=== PATIENT | male | born 1960 | race Caucasian/White ===

== ENCOUNTER 2021-08-11 15:51 | Emergency (ER) | payer BC, SELFPAY ==
[2021-08-11] VITALS (10 sets, daily range): BP systolic 116–145; BP diastolic 58–91; PULSE 114–144; RESP 16–27; TEMP 36.3; O2SAT 96–99
--- NOTE | 2021-08-11 18:22 | ED.ALCOHOL ---
HPI - Alcohol General Chief Complaint: Alcohol <Karina Argueta MATERIALS HANDLING COORDINATOR - Last Filed: 08/12/21 17:34> Stated Complaint: psych <Karina Argueta APRN - Last Filed: 08/12/21 17:34> Time Seen by Provider: 08/11/21 18:05 <Karina Argueta MATERIALS HANDLING COORDINATOR - Last Filed: 08/12/21 17:34> Source: patient <Karina Argueta APRN - Last Filed: 08/12/21 17:34> Mode of arrival: ambulatory <Karina Argueta MATERIALS HANDLING COORDINATOR - Last Filed: 08/12/21 17:34> Limitations: no limitations <Karina Argueta MATERIALS HANDLING COORDINATOR - Last Filed: 08/12/21 17:34> History of Present Illness HPI narrative: 61-year-old male escorted by letter as well please was brought in today with concerns for suicidal ideation and being drunk. Patient states he has recently lost his job and is currently going through a divorce and it has hit him hard. Patient states he has been alcoholic for a long time. Patient drinking over a liter a day. Patient does admit to suicidal thoughts but denies plan at current time. Per [employer] police patient had stated he was going to drink himself to . Patient denies homicidal ideation. Patient does admit to depression but denies hallucinations. Patient states his last drink was about 3:30 PM today. <Karina Argueta MATERIALS HANDLING COORDINATOR - Last Filed: 08/12/21 17:34> Related Data Allergies/Adverse Reactions: Allergies Allergy/AdvReac Type Severity Reaction Status Date / Time No Known Allergies Allergy Unknown Verified 08/11/21 18:34 <Karina Argueta MATERIALS HANDLING COORDINATOR - Last Filed: 08/12/21 17:34> Review of Systems Review of Systems: CONSTITUTIONAL: Denies fever, chills, or sweats. EYES: Denies visual changes, redness, or discharge. ENT: Denies rhinorrhea, congestion, sore throat, or otalgia. CARDIOVASCULAR: Denies chest pain, palpitations, or edema. RESPIRATORY: Denies cough or dyspnea. GASTROINTESTINAL: Denies abdominal pain, nausea, vomiting, or diarrhea. GENITOURINARY: Denies dysuria or hematuria. SKIN: Denies rash or itching. MUSCULOSKELETAL: Denies back pain, joint pain, or myalgia. NEUROLOGIC: Denies headache, numbness, dizziness, or weakness. PSYCHIATRIC: Depression and suicidal ideation. <Karina Argueta APRN - Last Filed: 08/12/21 17:34> PMFSH Social History Social History: Social History Substance use type: other <Karina Argueta APRN - Last Filed: 08/12/21 17:34> Exam Narrative: GENERAL: Well-appearing, well-nourished, and in no acute distress. HEAD: Normocephalic, atraumatic. EYES: PERRLA and EOMI. ENT: Nares clear, no rhinorrhea or epistaxis. Mucous membranes moist. Oropharynx without tonsillar hypertrophy exudate or other lesions. Bilateral TMs pearly leonard nonbulging NECK: Supple. No adenopathy or masses. No carotid bruits or JVD CHEST: Clear to auscultation. No respiratory distress. No wheezes rales or rhonchi HEART: Regular rate and rhythm. No murmur heard. Normal peripheral pulses. ABDOMEN: Soft, nontender, nondistended, normal active bowel sounds. EXTREMITIES: Normal range of motion. No edema. SKIN: Warm, dry, no rash. NEURO: No focal deficits. Alert and oriented x3. PSYCH: tearfull, depressed affect. <Karina Argueta APRN - Last Filed: 08/12/21 17:34> Course Course Emergency Course: 61-year-old male HPI as noted. Blood alcohol level 253. Plan is to reevaluate patient when sober. Will monitor for symptoms of withdrawal. <Karina Argueta APRN - Last Filed: 08/12/21 17:34> Reevaluation(s) Reevaluation #1: Received signout on the patient pending metabolization evaluation by crisis. Patient's repeat alcohol was 12 crisis consulted. <Curt Cortes MD - Last Filed: 08/12/21 07:23> Patient feeling much better, denying any suicidal or homicidal ideation, feeling concerned about the possibility of alcohol withdrawal, last alcohol intake was yesterday morning. A prescription of Ativan 1 mg 3 times daily for 3 days was given to the patient pr
--- NOTE | 2021-08-11 18:24 | PC.NURSE ---
Per ERP Pt needs a sitter until etoh blood wnl.
--- NOTE | 2021-08-11 18:37 | PC.NURSE ---
Pt belongings placed in cabinet bottom shelf between room 3and4
[2021-08-11 18:45] LABS: Basophils Absolute Auto 0.1 K/mm3 (0.0-0.1); Eosinophils Absolute Auto 0.6 K/mm3 (0-0.3); Eosinophils Percent Auto 4.8 % (0-4.4); Hematocrit 49.1 % (42.0-52.0); Hemoglobin 16.9 g/dL (14.0-18.0); Immature Granulocyte Absolute 0.14 K/mm3 (0.00-0.031); Immature Granulocyte Percent A 1.2 % (0-0.5); Lymphocytes Absolute Auto 1.92 K/mm3 (0.9-3.2); Mean Corpuscular HGB Conc 34.4 g/dl (32-36); Mean Corpuscular Hemoglobin 32.3 pg (26-34); Mean Corpuscular Volume 93.9 fl (80-100); Mean Platelet Volume 8.6 fl (7.4-10.4); Monocytes Absolute Auto 0.9 K/mm3 (0.1-0.6); Monocytes Percent Auto 7.3 % (2.6-8.5); Neutrophils Absolute Auto 8.4 K/mm3 (1.3-6.7); Neutrophils Percent Auto 69.7 % (45.5-73.1); Nucleated Red Blood Cells Absolute Auto 0.4 K/mm3 (0.0-0.012); Nucleated Red Blood Cells Perc 3.2 % (0.0-0.2); Platelet Count Result 146 k/mm3 (150-375); Red Blood Count 5.23 M/mm3 (4.6-6.20); Red Cell Distribution Width 19.9 % (11.5-14.5)
[2021-08-11] MEDS: LACTATED RINGERS 1,000 ML 999 ML IV CONT (18:50)
--- NOTE | 2021-08-11 18:59 | PC.NURSE ---
pt arrived with police to emergency room. pt had turned off phone and locked door for weeks hoping someone would find his body months later. [facility] reached PD for well visit. pt states he was hoping to drink himself to . pt states he has gone through a divorce that broke him. states he has not been taking his medication or eating. hoping to from alcohol. pt states he was also abusing xanex that he had rx for, until he ran out. pt states his depression began years ago when he found out his had been cheating and he still slept beside her every night. denies HI.
[2021-08-11 19:01] LABS: Acetaminophen < 10 ug/mL (10-30); Ethanol 253 mg/dL (<10); Salicylate 8.1 mg/dL (2-20)
[2021-08-11 19:02] LABS: Alanine Aminotransferase 43 U/L (4-50); Albumin Level 4.5 g/dL (3.5-5.1); Alkaline Phosphatase 173 U/L (38-126); Anion Gap 32 mmol/L (8-16); Aspartate Amino Transferase 79 U/L (17-59); Bilirubin,Total 1.4 mg/dL (0.2-1.3); Blood Urea Nitrogen 12 mg/dL (9-20); Carbon Dioxide 14 mmol/L (22-30); Chloride 95 mmol/L (98-107); Estimated CRCL calculation 71 ml/min; Estimated Glomerular Filt Rate > 60; Glucose 105 mg/dL (65-110); Potassium 3.8 mmol/L (3.4-5.0); Sodium 141 mmol/L (137-145)
[2021-08-11] MEDS: THIAMINE HCL 200 MG/2 ML VIAL 100 MG IV PUSH (19:10)
[2021-08-11 19:37] LABS: SARS-CoV-2 RNA PCR Negative
[2021-08-11] MEDS: SODIUM CHLORIDE 0.9% IV 1,000 ML 999 ML IV CONT (19:43)
[2021-08-11 20:46] LABS: Add Urine Microscopic? YES; Appearance Urine Clear (Clear); Bilirubin Urine Negative (Negative); Blood Urine Negative (Negative); Color Urine Yellow (Yellow); Glucose Urine UA Negative (Negative); Ketones Urine 2+ mg/dL (Negative); Leukocyte Esterase Ur Negative LEU/UL (Negative); Mucus Urine Rare /lpf; Nitrate Urine Negative (Negative); Protein Urine Negative (Negative); RBC Urine 0-2 /hpf (0-2); Specific Grav Ur 1.017 (1.001-1.035); WBC Urine 0-3 /hpf
[2021-08-11 20:58] LABS: Amphetamine Screen Urine Negative (Negative); Barbiturate Screen Urine Negative (Negative); Benzodiazepines Screen Urine Negative (Negative); Cannabinoid Screen Urine Negative (Negative); Cocaine Screen Urine Negative (Negative); Methadone Screen Urine Negative (Negative); Opiate Screen Urine Negative (Negative); Phencyclidine Screen Urine Negative (Negative)
[2021-08-12] VITALS (8 sets, daily range): BP systolic 99–135; BP diastolic 71–90; PULSE 120–143; RESP 17–29; O2SAT 91–100
[2021-08-12] MEDS: LORazepam INJ (*CRX) 2 MG/ML VIAL 1 MG IV PUSH ×3 (00:26→09:36)
[2021-08-12 05:48] LABS: Ethanol 12 mg/dL (<10)
--- NOTE | 2021-08-12 05:51 | PC.NURSE ---
crisis hotline called @ [phone]. rack worker will present to ED for patient eval
--- NOTE | 2021-08-12 08:28 | PC.NURSE ---
Crisis here to evaluate pt.
== END 2021-08-12 10:24 | disposition home or self-care (01) ==
PROVIDERS: Nurse Practitioner Family; Emergency Provider Emergency Medicine
DX: F10.239 Alcohol dependence with withdrawal, unspecified (principal); Z20.822 Contact with and (suspected) exposure to COVID-19; F32.9 Major depressive disorder, single episode, unspecified; Y90.8 Blood alcohol level of 240 mg/100 ml or more
CPT/HCPCS: 36415; 80053; 80307; 81001; 84443; 85025; 96361; 96374; 96376; 99284; C9803; J2060; J3411; J7030; J7120; U0003; U0005

== ENCOUNTER 2022-08-02 10:01 | Outpatient (CLI) | payer OTHER, SELFPAY ==
--- NOTE | 2022-08-02 11:18 | ECG_ITS ---
Measurements Intervals One[place] Rate: 103 P: 44 MN: 148 QRS: 17 QRSD: 91 T: 42 QT: 338 QTc: 443 Interpretive Statements SINUS TACHYCARDIA VENTRICULAR PREMATURE COMPLEX BORDERLINE ECG NO PREVIOUS ECG AVAILABLE FOR COMPARISON Electronically Signed On 08-02-2022 13:14:51 [place]ALS by Brijesh Najera D.O.
[2022-08-02 11:53] LABS: Basophils Absolute Auto 0.1 K/mm3 (0.0-0.1); Basophils Percent Auto 0.8 % (0.2-1.2); Eosinophils Absolute Auto 0.1 K/mm3 (0-0.3); Eosinophils Percent Auto 1.1 % (0-4.4); Hematocrit 44.9 % (42.0-52.0); Hemoglobin 15.4 g/dL (14.0-18.0); Immature Granulocyte Absolute 0.04 K/mm3 (0.00-0.031); Immature Granulocyte Percent A 0.5 % (0-0.5); Lymphocytes Absolute Auto 1.55 K/mm3 (0.9-3.2); Lymphocytes Percent Auto 20.9 % (18.3-44.2); Mean Corpuscular HGB Conc 34.3 g/dl (32-36); Mean Corpuscular Hemoglobin 30.7 pg (26-34); Mean Corpuscular Volume 89.4 fl (80-100); Mean Platelet Volume 8.5 fl (7.4-10.4); Monocytes Absolute Auto 0.6 K/mm3 (0.1-0.6); Monocytes Percent Auto 8.5 % (2.6-8.5); Neutrophils Absolute Auto 5.1 K/mm3 (1.3-6.7); Neutrophils Percent Auto 68.2 % (45.5-73.1); Platelet Count Result 193 k/mm3 (150-375); Red Blood Count 5.02 M/mm3 (4.6-6.20); White Blood Count 7.4 K/mm3 (4.5-10.0)
[2022-08-02 11:57] LABS: Urine Cotinine NEGATIVE
[2022-08-02 12:05] LABS: Albumin Level 4.2 g/dL (3.5-5.1); Estimated Glomerular Filt Rate > 60; Glucose 113 mg/dL (65-110)
[2022-08-02 12:09] LABS: Hemoglobin A1C 5.7 % (<5.7)
== END 2022-08-02 10:02 | disposition home or self-care (01) ==
LOC: ANHSURGERY 10:12
PROVIDERS: PCP Internal Medicine; Visit Provider Orthopaedic Surgery
DX: M16.12 Unilateral primary osteoarthritis, left hip (principal); Z01.818 Encounter for other preprocedural examination; R94.31 Abnormal electrocardiogram [ECG] [EKG]
CPT/HCPCS: 80307; 82040; 82565; 82947; 83036; 85025; 87081; 93005

== ENCOUNTER 2022-08-17 00:11 | Day surgery (SDC) | payer OTHER, SELFPAY ==
--- NOTE | 2022-08-02 10:39 | PC.NURSE ---
Report to the Outpatient Waiting Room, entrance under the green pavilion located off [facility], at time __6:00AM on date __08/17/22 . Planned Procedure Time: ___7:30AM . Time changes happen often and if your time is changed the preop area will call you the afternoon before. - You and your visitor will be asked to self-screen and do not enter if you have any COVID symptoms. - Only one visitor is requested with a max of two and NO children visitors are allowed at this time. - The patient visitor may be requested to leave or wait in car when not with patient due to distancing restrictions. - A mask is optional within the hospital at this time. Patients may have clear liquids (water, carbonated beverages, clear teas, apple juice) until 3 hours prior to surgery with a maximum of 20 ounces. - No food from midnight until time of surgery Take the following medications with a SIP of water the morning of surgery: ___XANAX NEEDED, BUPROPION, HYDROXYZINE NEEDED, LEVOTHYROXINE DO NOT STOP ANY OF YOUR OTHER PRESCRIPTION MEDICATIONS PRIOR TO SURGERY ?EXCEPT THE FOLLOWING Medications to discontinue per physician HOLD ALL VITAMINS/SUPPLEMENTS 3 DAYS PRE-OP Date to take last dose____08/13/22 Please no make-up, nail indian, hairspray, perfume, deodorant, or body powder the day of surgery. No jewelry (including any body piercings) or valuables the day of surgery, leave them at home. Please take a shower or bath the night before, or the morning of, surgery with an antibacterial soap. Wear comfortable, loose fitting clothing. Children are encouraged to wear pajamas. - Jewelry must be removed prior to entering the operating room. Rings and piercings that are not removed may be cut off. - The hospital will not accept responsibility for valuables. - Please leave all valuables, including medications, at home the day of surgery. If you are going home after surgery, a licensed compressed air pile driver operator must drive you home. - NO public transportation without another adult if you receive anesthesia. - We recommend that an adult stay with you for 24 hours following discharge. - We also recommend that you do not drive, make important decision, drink alcoholic beverages, or take any drugs that were not prescribed by your health care provider for at least 24 hours after your discharge time. Follow any additional instructions given to you from your surgeon. If you or anyone in your household have experienced Covid symptoms in the past week, please notify your surgeon or the nurse liaison at the phone number below for possible testing. Telephone instructions given to PATIENT and asked if any additional questions and then verbalized understanding. For Pediatric surgeries, we recommend two adults accompany the child home. Follow any additional instructions given to you from your surgeon. If you or anyone in your household have experienced Covid symptoms in the past week, please notify your surgeon or the nurse liaison at the phone number below for possible testing. Telephone instructions given to and asked if any additional questions and then verbalized understanding. Patient advised to call surgeon office or pre surgery nurse liaison [phone] if any additional questions.
[2022-08-02 10:40] VITALS: BP 146/105; PULSE 110; RESP 16; TEMP 36.8; O2SAT 98; BMI 33.0
--- NOTE | 2022-08-02 10:59 | PC.NURSE ---
Report to the Outpatient Waiting Room, entrance under the green pavilion located off [facility], at time _6:00AM on date ___08/17/22____. Planned Procedure Time: _7:30AM . Time changes happen often and if your time is changed the preop area will call you the afternoon before. - You and your visitor will be asked to self-screen and do not enter if you have any COVID symptoms. - Only one visitor is requested with a max of two and NO children visitors are allowed at this time. - The patient visitor may be requested to leave or wait in car when not with patient due to distancing restrictions. - A mask is optional within the hospital at this time. Patients may have clear liquids (water, carbonated beverages, clear teas, apple juice) until 3 hours prior to surgery with a maximum of 20 ounces. - No food from midnight until time of surgery Take the following medications with a SIP of water the morning of surgery: __XANAX NEEDED, BUPROPION, LEVOTHYROXINE, HYDROXYZINE NEEDED DO NOT STOP ANY OF YOUR OTHER PRESCRIPTION MEDICATIONS PRIOR TO SURGERY ?EXCEPT THE FOLLOWING Medications to discontinue per physician ____HOLD ALL VITAMINS/SUPPLEMENTS 3 DAYS PRE-OP Date to take last dose 08/13/22 Please no make-up, nail czech, hairspray, perfume, deodorant, or body powder the day of surgery. No jewelry (including any body piercings) or valuables the day of surgery, leave them at home. Please take a shower or bath the night before, or the morning of, surgery with an antibacterial soap. Wear comfortable, loose fitting clothing. Children are encouraged to wear pajamas. - Jewelry must be removed prior to entering the operating room. Rings and piercings that are not removed may be cut off. - The hospital will not accept responsibility for valuables. - Please leave all valuables, including medications, at home the day of surgery. If you are going home after surgery, a licensed compactor driver must drive you home. - NO public transportation without another adult if you receive anesthesia. - We recommend that an adult stay with you for 24 hours following discharge. - We also recommend that you do not drive, make important decision, drink alcoholic beverages, or take any drugs that were not prescribed by your health care provider for at least 24 hours after your discharge time. Follow any additional instructions given to you from your surgeon. If you or anyone in your household have experienced Covid symptoms in the past week, please notify your surgeon or the nurse liaison at the phone number below for possible testing. Telephone instructions given to _PATIENT and asked if any additional questions and then verbalized understanding. Patient advised to call surgeon office or pre surgery nurse liaison [phone] if any additional questions.
--- NOTE | 2022-08-12 15:45 | PM.IMHP ---
H&P: HPI History of Present Illness Date/Time: 08/12/22 15:45 Chief Complaint: the patient is a 62-year-old male who sees Dr. Farris regarding his left hip. The patient has a chronic ongoing history of pain localized to the groin that radiates into the thigh worse with activity somewhat relieved by rest he has startup pain rest pain and night pain has limited what he can do cannot stand or walk for long periods he notes decreasing range of motion over time he has tried medicine therapy and activity modifications without significant long-term relief. X-rays at this time show [id number] changes in the left hip femoral acetabular joint the patient is tired of living with it and has discussed further treatment options in detail Dr. Farris the patient would now like to proceed with a left total hip arthroplasty. Review of Systems Review of Systems: Ten point review of systems otherwise negative [facility] Social History Social History Smoking packs per day: 0.3 Smoking cigarettes per day: 6.0 Years smoked: 20 Smoking pack-years: 6.00 Smoking status: Former smoker Tobacco type: cigarettes Smoking end date: 11/26/13 Alcohol intake: current Drinks per week: 14 Alcohol use details: INTERMITTENLY DRINKS HEAVILY, AA BUT NOT GOING CURRENTLY Substance use type: marijuana and crack/cocaine Last use: 1989 Living arrangements: alone Spiritual care concerns: No Meds Home Medications and Allergies Home Medications Medication Instructions Recorded Confirmed Type thiamine HCl (vitamin B1) 100 mg 50 mg PO DAILY #20 tabs 08/12/21 08/02/22 Rx tablet alprazolam 1 mg tablet (Xanax) 1 mg PO TID PRN Anxiety 08/02/22 08/02/22 History atorvastatin 40 mg tablet 40 mg PO DAILY 08/02/22 08/02/22 History bupropion HCl 200 mg tablet,12 hr 20 mg PO BID 08/02/22 08/02/22 History sustained-release cholecalciferol (vitamin D3) 50 50 mcg PO DAILY 08/02/22 08/02/22 History mcg (2,000 unit) capsule hydroxyzine HCl 25 mg tablet 25 mg PO TID PRN Anxiety 08/02/22 08/02/22 History levothyroxine 50 mcg tablet 50 mcg PO QAM 08/02/22 08/02/22 History magnesium 500 mg tablet 15 mg PO DAILY 08/02/22 08/02/22 History meloxicam 15 mg tablet 15 mg PO QAM 08/02/22 08/02/22 History omega 3-xfv-dzo-fish oil 1,000 mg 2 cap PO DAILY 08/02/22 08/02/22 History (120 mg-180 mg) capsule (Fish Oil) pediatric multivitamin 2 tablet PO DAILY 08/02/22 08/02/22 History vitamin E 1,000 unit tablet 1 tablet PO DAILY 08/02/22 08/02/22 History zinc 25 mg tablet 25 mg PO DAILY 08/02/22 08/02/22 History Allergies Allergy/AdvReac Type Severity Reaction Status Date / Time No Known Allergies Allergy Unknown Verified 08/02/22 11:22 Exam Narrative: on exam the patient is noted be 5 ft 11 in tall 250 lb with a BMI 34.9 well-developed well-nourished male no acute distress alert oriented x3. Normal mood and affect. Hearing and vision are intact. Respiratory is good no distress. Pulse regular rate rhythm. Abdomen benign. Extremities show the patient's left hip to be painful with manipulation and range of motion he has limited internal external rotation pain with extremes of motion with a positive Stinchfield positive Jennifer exam left hip. Walks with an antalgic gait because of ppcz-[id number]-[id number] primary osteoarthritis in the left hip joint. There is no erythema heat effusion or signs of infection neurovascular is intact strength is 5 5 hip joint is otherwise stable skin is intact without rashes or lesions. Central nervous system within normal limits. Assessment and Plan Assessment and plan (1) Primary osteoarthritis of left hip: Code(s): M16.12 - Unilateral primary osteoarthritis, left hip Status: Acute Plan by x-ray and exam the patient is noted to have advanced primary osteoarthritis of the left hip joint. The patient has discussed risks benefits limitations and alternatives to panchal
[2022-08-17] VITALS (15 sets, daily range): BP systolic 103–134; BP diastolic 67–88; PULSE 68–108; RESP 12–20; TEMP 36.1–37.1; O2SAT 87–99
--- NOTE | ~2022-08-17 | XR_ITS ---
EXAMINATION: XR surgery orthopedic DATE: 08/17/2022 09:27 INDICATION: Intraoperative evaluation during left total hip arthroplasty TECHNIQUE: Frontal view of the left hip was obtained. COMPARISON: None. FINDINGS: Intraoperative image during a left total hip arthroplasty demonstrate placement of an acetabular comp onent which is affixed with at least 2 screws and which is in expected position on the single image p rovided. A femoral broach is in place with the proximal tip centered over the acetabular component. Portions of the pelvis are obscured by a bolster. No fractures in the visualized bones. IMPRESSION: 1. Expected appearance during left total hip arthroplasty. Reviewed, dictated and finalized at location A.
--- NOTE | ~2022-08-17 | XR_ITS ---
EXAMINATION: XR pelvis 1-2V DATE: 08/17/2022 09:28 INDICATION: Postoperative evaluation following left total hip arthroplasty. TECHNIQUE: Anteroposterior view of the pelvis was obtained. COMPARISON: Intraoperative radiograph dated 08/17/2022 FINDINGS: Interval completion of a left total hip arthroplasty which appears well seated in near anatomic align ment. No fractures identified. Portions of the right pelvis are obscured by a bolster. Expected small amount of soft tissue gas at the operative bed. IMPRESSION: 1. Left total hip arthroplasty, negative for postoperative purposes. Reviewed, dictated and finalized at location A.
[2022-08-17] MEDS: ACETAMINOPHEN 500 MG TABLET 1000 MG PO (06:30)
[2022-08-17] MEDS: LACTATED RINGERS 1,000 ML 30 ML IV CONT ×2 (06:35→09:52)
--- NOTE | 2022-08-17 06:51 | WPDHPUPDATE1 ---
History and Physical Update Update Date/Time: 08/17/22 06:51 History and Physical has been reviewed, including an updated exam of the patient. There are NO changes in the patient's condition. Risks, benefits, and alternatives have been discussed and questions answered. Patient agrees to proceed with procedure.
--- NOTE | 2022-08-17 06:51 | WPDANESEPPF ---
Anes - Initial Pre Proc Eval Procedure: Operation Date: 08/17/22 07:30 Proposed Procedures p Left Total Hip Arthroplasty - Cresencio Farris MD Date/Time: 08/17/22 06:51 Surgeon: Cresencio Farris MD Pre Op Diagnosis: O.A. Lt Hip Patient Data Age: 62 Gender: M Height: 1.8 m Weight: 107.5 kg Last Vital Signs Temp 36.8 C 08/02/22 10:40 Pulse 110 H 08/02/22 10:40 Resp 16 08/02/22 10:40 BP 146/105 H 08/02/22 10:40 Pulse Ox 98 08/02/22 10:40 O2 Del Method Room Air 08/02/22 10:40 Allergies Allergy/AdvReac Type Severity Reaction Status Date / Time No Known Allergies Allergy Unknown Verified 08/02/22 11:22 Home Medications Medication Instructions Recorded Confirmed Type thiamine HCl (vitamin B1) 100 mg 50 mg PO DAILY #20 tabs 08/12/21 08/17/22 Rx tablet alprazolam 1 mg tablet (Xanax) 1 mg PO TID PRN Anxiety 08/02/22 08/17/22 History atorvastatin 40 mg tablet 40 mg PO DAILY 08/02/22 08/17/22 History bupropion HCl 200 mg tablet,12 hr 20 mg PO BID 08/02/22 08/17/22 History sustained-release cholecalciferol (vitamin D3) 50 50 mcg PO DAILY 08/02/22 08/17/22 History mcg (2,000 unit) capsule hydroxyzine HCl 25 mg tablet 25 mg PO TID PRN Anxiety 08/02/22 08/02/22 History levothyroxine 50 mcg tablet 50 mcg PO QAM 08/02/22 08/17/22 History magnesium 500 mg tablet 15 mg PO DAILY 08/02/22 08/17/22 History meloxicam 15 mg tablet 15 mg PO QAM 08/02/22 08/17/22 History omega 6-xac-jrp-fish oil 1,000 mg 2 cap PO DAILY 08/02/22 08/17/22 History (120 mg-180 mg) capsule (Fish Oil) pediatric multivitamin 2 tablet PO DAILY 08/02/22 08/17/22 History vitamin E 1,000 unit tablet 1 tablet PO DAILY 03/07/23 03/22/23 History zinc 25 mg tablet 25 mg PO DAILY 08/02/22 08/17/22 History Patient hx anesthesia problems: none Family hx anesthesia problems: none Results Review: All pre-operative results and documents have been reviewed as part of the pre-operative evaluation. [facility] Past Medical History Medical History (Updated 08/17/22 @ 06:52 by Maxime Moreno MD) Obesity CYNTHIA (obstructive sleep apnea) Surgical History Surgical History (Updated 08/17/22 @ 06:52 by Maxime Moreno MD) History of cholecystectomy Social History Social History Smoking packs per day: 0.3 Smoking cigarettes per day: 6.0 Years smoked: 20 Smoking pack-years: 6.00 Smoking status: Former smoker Tobacco type: cigarettes Smoking end date: 11/26/13 Alcohol intake: current Drinks per week: 14 Alcohol use details: INTERMITTENLY DRINKS HEAVILY, AA BUT NOT GOING CURRENTLY Substance use type: marijuana and crack/cocaine Last use: 1989 Living arrangements: alone Spiritual care concerns: No Anes - Eval Final PreProcedure Day of Procedure 08/17/22 06:51 Patient weight: obese Heart: regular rate and rhythm Lungs: clear to auscultation Airway: Mallampati scale class II Neurological: alert and oriented Last oral intake: >/= 8 hours ASA classification: III Emergent: no Anesthetic plan: proceed Anesthesia type and monitoring: general ETT and standard monitoring Results Review: All pre-operative results and documents have been reviewed as part of the pre-operative evaluation. Informed Consent: The patient's anesthetic plan and its attendant risks and benefits were discussed with the patient/family/POA. Questions were solicited and answers provided to the satisfaction of the patient/family/POA.
[2022-08-17] MEDS: TRANEXAMIC ACID 1,000MG/ISO100 1,000 MG/100 ML BAG 200 MG IVPB (06:57)
[2022-08-17] MEDS: ceFAZolin 2 GM/D5W 50 ML 2 GM/50 ML BAG IVPB (07:43)
--- NOTE | 2022-08-17 09:14 | P.OP_ITS ---
Procedure Note - Detailed Date of Procedure 08/17/22 Pre-op Diagnosis O.A. Lt Hip Post-op Diagnosis Same Procedure Performed [Left] total hip arthroplasty Surgeon Cresencio Farris MD Business Banking Officer Ayo Butler Anesthesia General Description of Procedure Patient was brought to the operating room and anesthetic was administered. The patient was placed with the [left] up and steriley prepped and draped in the usual manner. Longitudinal incision was done, dissection carried down to the fascia. A Hardinge type approach was used and the femoral head was dislocated anteriorly. Femoral head was removed a finger breath above the lesser trochanter. The acetabulum was serially reamed to accept a [54] component. This was impacted into place and secured with 2 25mm screws. A high wall liner was placed. The femur was reamed and broached to accept an [11] component which was impacted into place. A plus [-3] ball and neck were placed and the hip was put through full range of motion. The hip was noted to be stable. The wounds were then closed in a layer fashion using #5 ethibond, 2 vicryl, 2-0 vicryl and prince. Patient left the operating room in satisfactory condition. Estimated Blood Loss 600 Drains No Packing No Pathology None sent Complications No immediate complications Condition Stable Disposition PACU
[2022-08-17] MEDS: ceFAZolin SODIUM 1 GM VIAL 2 GM IV PUSH (09:19)
[2022-08-17] MEDS: fentaNYL CITRATE INJ (*CRX) 100 MCG/2 ML VIAL 25 MCG IV PUSH ×7 (10:05→10:58)
--- NOTE | 2022-08-17 10:11 | PM.OP ---
Procedure Note - Brief Procedure Note - Brief Date of procedure: 08/17/22 Pre-op diagnosis: O.A. Lt Hip Preop diagnosis advanced primary osteoarthritis left hip joint Postop diagnosis same status post left total hip arthroplasty. Procedure performed: Left total hip arthroplasty Description of procedure: Patient was taken the operating room on August 17, 2022 I entered the room at 7:30 a.m. assisted with positioning the patient on the operating table once anesthesia was commenced. Using hip positioner is the patient was placed in a lateral decubitus position and then distal prepped and drape. Dr. Farris then entered the room and proceeded with left total hip arthroplasty. Throughout the procedure I assisted with wound retraction hemostasis with suction and cautery in positioning of the leg for optimal placement of the total hip prosthesis. Once this was placed I then assisted with the closure of the abductors and deep joint capsule. Dr. Farris exited the room and proceeded to close the deep fascial layer after extensive irrigation placement of Surgicel powder further hemostasis with cauterization. I used 2. Vicryl 2. Quill type suture to close the fascia. Once this was done wound was once again irrigated and more Surgicel powder was placed with further checked for hemostasis. I then closed the superficial skin layers with 2-0 Vicryl, 0 Quill and prince. Then placed a sterile dressing with Xeroform 4x4s and tape. Then I assisted with transfer the patient from the operating table to the stretcher so the patient can be transported in good condition to recovery room for an overnight stay with anticipation of going home the next day as long as everything looks good. Total blood loss was around 500 cc. Exit the room at 9:50 a.m. Surgeon: Surgeon Cresencio Farris MD curriculum assistant principal Ayo Butler PA-C
--- NOTE | 2022-08-17 11:31 | ADMGEN ---
This patient, Jamey Villaseñor, was admitted to Medical Room 257-01. Patient/family oriented to hospital policies and general routines including ID bracelet, bed and alarms, visiting hours, pain management, procedures, bathroom and other care routines, personal items, smoking policy, room service/diet, and visiting hours. Information on how to activate the Rapid Response Team has been discussed. Patient/Family are encouraged to report perceived risks to care and to ask questions if they do not understand what they are told or what they should do.
[2022-08-17 11:33] LABS: Hemoglobin 13.1 g/dL (14.0-18.0)
[2022-08-17] MEDS: HYDROcodone/acetaminophen (*CRX) 5-325 MG TABLET 1 TAB PO ×2 (12:29→20:16)
[2022-08-17] MEDS: SENNA/DOCUSATE SODIUM TABLET 2 TAB PO (17:17)
[2022-08-17] MEDS: RIVAROXABAN 10 MG TABLET PO (17:18)
[2022-08-17] MEDS: ceFAZolin 1 GM/NS 50 ML 1 GM/50 ML BAG IVPB ×2 (17:19→22:57)
[2022-08-17] MEDS: buPROPion HCL SR (12HR) 100 MG TABCR 200 MG PO (20:16)
--- NOTE | 2022-08-17 22:30 | WPDCN ---
Assessment and Plan Assessment and plan (1) Primary osteoarthritis of left hip: Code(s): M16.12 - Unilateral primary osteoarthritis, left hip Status: Acute Assessment and Plan: Postoperative day 0 status post left hip arthroplasty. Wound care, pain control, and DVT prophylaxis deferred to Dr. Farris. Check baseline labs in a.m.. (2) Postoperative urinary retention: Code(s): N99.89 - Other postprocedural complications and disorders of genitourinary system; R33.8 - Other retention of urine Status: Acute Assessment and Plan: Straight catheterization x1. Bladder scan intermittently, may need Contreras catheter for a few days. (3) Hypothyroidism: Code(s): E03.9 - Hypothyroidism, unspecified Status: Acute Assessment and Plan: Continue levothyroxine and check TSH. (4) Depression with anxiety: Code(s): F41.8 - Other specified anxiety disorders Status: Acute Assessment and Plan: No acute issues continue alprazolam as needed and bupropion. (5) Hyperlipidemia: Code(s): E78.5 - Hyperlipidemia, unspecified Status: Acute Assessment and Plan: Continue statin and check LFTs in a.m. (6) Alcohol abuse: Code(s): F10.10 - Alcohol abuse, uncomplicated Status: Acute Assessment and Plan: No alcohol in 15 days. Previously involved in AA. No current concerns for withdrawal. Plan Thank you for allowing us to participate in this patient's care. Please do not hesitate to contact us with any questions. HPI Data of Consult Date/Time: 08/17/22 22:30 Requesting Physician: Cresencio Farris MD Consult Narrative Reason for consult: Postoperative medical management. Narrative: This is a 62-year-old male with history of alcoholism, osteoarthritis, anxiety, depression, and hypothyroidism whom the hospitalist service has been consulted for management of his medical conditions postoperatively. He has had longstanding pain in his left hip non amenable to conservative outpatient treatment and he opted for replacement today. His surgery was performed under general anesthesia with no immediate complications documented an estimated blood loss of 600 mL. Postoperatively his pain is pretty well controlled. He has been up ambulating in the room into the chair without much issue. He has experienced urinary frequency and feels as though he is not emptying his bladder. This is never been a problem for him before. He is otherwise doing okay. He denies fever, chills, sweats, chest pain, shortness a breath, nausea, and vomiting. No history of venous thromboembolism. Daughter and ex- are going to be helping out at home if needed on discharge. Review of Systems Review of Systems: Twelve systems were reviewed. No fever, chills, or sweats. No recent cold or flu symptoms. No chest pain shortness a breath. No history of venous thromboembolism. He is an alcoholic and his last drink was about 15 days ago. He had some mild withdrawal symptoms but nothing significant as he was given a prescription for Xanax. Not having any sweats, hallucinations, or confusion. Except as documented, all other systems were reviewed and are negative. [facility] Past Medical History Medical History (Updated 08/18/22 @ 01:16 by Tana Moreno PA-C) Alcohol abuse Depression with anxiety Hyperlipidemia Hypothyroidism Obesity Obstructive sleep apnea Does not use CPAP. Pancreatitis Surgical History Surgical History (Updated 08/18/22 @ 00:40 by Tana Moreno PA-C) History of cholecystectomy History of left hip replacement (08/17/22) History of tonsillectomy Family History Family History (Updated 08/18/22 @ 00:39 by Tana Moreno PA-C) Sibling Crohn's disease Social History Social History (Updated 08/18/22 @ 01:15 by Tana Moreno PA-C) Social History: Surrogate medical decision maker: Saul Cervantes, daughter or Radha
[2022-08-18 03:36] VITALS: BP 108/64; PULSE 91; RESP 18; TEMP 36.8; O2SAT 96
[2022-08-18 05:54] LABS: Basophils Percent Auto 0.2 % (0.2-1.2); Hematocrit 37.4 % (42.0-52.0); Hemoglobin 12.3 g/dL (14.0-18.0); Immature Granulocyte Absolute 0.04 K/mm3 (0.00-0.031); Immature Granulocyte Percent A 0.4 % (0-0.5); Lymphocytes Absolute Auto 0.78 K/mm3 (0.9-3.2); Lymphocytes Percent Auto 8.2 % (18.3-44.2); Mean Corpuscular HGB Conc 32.9 g/dl (32-36); Mean Corpuscular Hemoglobin 30.1 pg (26-34); Mean Corpuscular Volume 91.7 fl (80-100); Mean Platelet Volume 9.1 fl (7.4-10.4); Monocytes Percent Auto 10.7 % (2.6-8.5); Neutrophils Absolute Auto 7.7 K/mm3 (1.3-6.7); Neutrophils Percent Auto 80.5 % (45.5-73.1); Platelet Count Result 186 k/mm3 (150-375); Red Blood Count 4.08 M/mm3 (4.6-6.20); Red Cell Distribution Width 14.3 % (11.5-14.5); White Blood Count 9.5 K/mm3 (4.5-10.0)
[2022-08-18] MEDS: LEVOTHYROXINE SODIUM 50 MCG TABLET PO (05:58)
[2022-08-18 06:11] LABS: Alanine Aminotransferase 22 U/L (6-50); Alkaline Phosphatase 68 U/L (38-126); Anion Gap 4 mmol/L (8-16); Aspartate Amino Transferase 32 U/L (17-59); Bilirubin,Total 0.6 mg/dL (0.2-1.3); Blood Urea Nitrogen 12 mg/dL (9-20); Carbon Dioxide 29 mmol/L (22-30); Chloride 105 mmol/L (98-107); Estimated CRCL calculation 94 ml/min; Estimated Glomerular Filt Rate > 60; Glucose 126 mg/dL (65-110); Potassium 4.9 mmol/L (3.4-5.0); Sodium 138 mmol/L (137-145)
[2022-08-18 06:49] LABS: Thyroid Stimulating Hormone Reflex 0.574 uIU/mL (0.465-4.68)
[2022-08-18] MEDS: ceFAZolin 1 GM/NS 50 ML 1 GM/50 ML BAG IVPB (07:31)
--- NOTE | 2022-08-18 08:45 | PM.IMPN ---
Progress Note: A&P Assessment and Plan (1) Primary osteoarthritis of left hip: Code(s): M16.12 - Unilateral primary osteoarthritis, left hip Status: Acute Assessment and Plan: Postoperative day 1 status post left hip arthroplasty. Wound care, pain control, and DVT prophylaxis deferred to Dr. Farris. labs are stable PT and OT ordered toe-touch weight-bearing ordered per Ortho (2) Postoperative urinary retention: Code(s): N99.89 - Other postprocedural complications and disorders of genitourinary system; R33.8 - Other retention of urine Status: Acute Assessment and Plan: Straight catheterization x1. Bladder scan intermittently consider Contreras catheter trend urine output (3) Hypothyroidism: Code(s): E03.9 - Hypothyroidism, unspecified Status: Acute Assessment and Plan: Continue levothyroxine TSH stable at 0.574 (4) Depression with anxiety: Code(s): F41.8 - Other specified anxiety disorders Status: Acute Assessment and Plan: No acute issues continue alprazolam as needed and bupropion. (5) Hyperlipidemia: Code(s): E78.5 - Hyperlipidemia, unspecified Status: Acute Assessment and Plan: Continue statin LFTs stable (6) Alcohol abuse: Code(s): F10.10 - Alcohol abuse, uncomplicated Status: Acute Assessment and Plan: No alcohol in 15 days. Previously involved in AA. No current concerns for withdrawal. Plan Patient is stable for discharge per hospitalist stand point Time Spent With Patient Time: 48 minutes Time with patient: Greater than 35 minutes Subjective Date/time seen: 08/18/22 08:45 Interval history: 08/18/22 0845 Patient was sitting up in the chair eating his breakfast. He stated that he is actually doing great he does have a little pain and he does know that he had surgery there but it is confirmed shoulder and knee feels okay. He denies any chest pain, shortness a breath, nausea, vomiting, diarrhea or constipation. His main concern was the urination issue which he stated he is urinating. Talked to him more about that and gave him education about when to follow up with his physician about urinary retention or BPH issues including urgency frequency and unable to empty. Also talked to him about his stream and ensuring that his stream is strong. Patient verbalized understanding. 08/17/22? 22:30 This is a 62-year-old male with history of alcoholism, osteoarthritis, anxiety, depression, and hypothyroidism whom the hospitalist service has been consulted for management of his medical conditions postoperatively. He has had longstanding pain in his left hip non amenable to conservative outpatient treatment and he opted for replacement today.? His surgery was performed under general anesthesia with no immediate complications documented an estimated blood loss of 600 mL. Postoperatively his pain is pretty well controlled. He has been up ambulating in the room into the chair without much issue. He has experienced urinary frequency and feels as though he is not emptying his bladder. This is never been a problem for him before. He is otherwise doing okay. He denies fever, chills, sweats, chest pain, shortness a breath, nausea, and vomiting. No history of venous thromboembolism. Daughter and ex- are going to be helping out at home if needed on discharge. Review of Systems Review of Systems: All systems reviewed & are unremarkable except as noted in HPI and below Exam Narrative: General: well-nourished, well-appearing 62-year-old male, sitting up in chair, comfortable, NARD Neuro: awake, alert and oriented x4, speech clear, no focal neuro deficits noted HEENMT: normocephalic, atraumatic, EOMI, sclerae anicteric, moist oral mucosa Respiratory: Clear to auscultation bilaterally without crackles, rhonchi or wheezes, nonlabored breathing Cardio: regular rate,
[2022-08-18] MEDS: ATORVASTATIN 40 MG TABLET PO (08:57)
[2022-08-18] MEDS: buPROPion HCL SR (12HR) 100 MG TABCR 200 MG PO (08:57)
[2022-08-18] MEDS: CELECOXIB 200 MG CAPSULE PO (08:58)
[2022-08-18] MEDS: OMEGA 3 POLYUNSAT FATTY ACIDS 1 GM CAP 2 GM PO (08:58)
[2022-08-18] MEDS: CHOLECALCIFEROL 1,000 UNITS TABLET 2000 UNITS PO (08:58)
[2022-08-18] MEDS: MELOXICAM 7.5 MG TABLET 15 MG PO (08:58)
[2022-08-18] MEDS: ALPRAZolam (*CRX) 0.5 MG TABLET 1 MG PO (08:59)
[2022-08-18] MEDS: THIAMINE HCL 50 MG TABLET PO (08:59)
[2022-08-18] MEDS: VITAMIN E 1,000 UNIT CAPSULE 1000 UNIT PO (08:59)
[2022-08-18] MEDS: polyethylene glycoL 3350 17 GM POWD.PACK PO (09:02)
--- NOTE | 2022-08-18 09:07 | WPDANESPN ---
Anes - Prog Note Post-Op Date/Time: 08/18/22 09:07 Cardiovascular status: normal Respiratory status: normal Airway patency: baseline Mental status: baseline Post-Op hydration status: normal Vital Signs: Last Vital Signs Temp 98.2 F 08/18/22 03:36 Pulse 91 08/18/22 03:36 Resp 18 08/18/22 03:36 BP 108/64 08/18/22 03:36 Pulse Ox 96 08/18/22 03:36 O2 Del Method Room Air 08/17/22 22:14 O2 Flow Rate 10 08/17/22 10:15 Pain Score (VAS): 0/10 I/O: Intake & Output 08/17/22 08/18/22 08/18/22 23:59 07:59 15:59 Intake Total 340 400 Output Total 900 2700 Balance -560 -2300 Laboratory Tests 08/18/22 05:36 08/18/22 05:36 08/17/22 08/18/22 08/18/22 11:28 05:36 05:36 WBC 9.5 RBC 4.08 L Hgb 13.1 L 12.3 L Hct 39.0 L 37.4 L MCV 91.7 MCH 30.1 MCHC 32.9 RDW 14.3 Plt Count 186 MPV 9.1 Immature Gran % (Auto) 0.4 Neut % (Auto) 80.5 H Lymph % (Auto) 8.2 L Spink % (Auto) 10.7 H Eos % (Auto) 0.0 Baso % (Auto) 0.2 Lymph # (Auto) 0.78 L Spink # (Auto) 1.0 H Eos # (Auto) 0.0 Baso # (Auto) 0.0 Abs Immat Gran (auto) 0.04 H Absolute Neuts (auto) 7.7 H Absolute Nucleated RBC 0.0 Nucleated RBC % 0.0 Sodium 138 Potassium 4.9 Chloride 105 Carbon Dioxide 29 Anion Gap 4 L BUN 12 Creatinine 0.90 Estim Creat Clear Calc 94 Estimated GFR > 60 Glucose 126 H Calcium 9.0 Magnesium 2.0 Total Bilirubin 0.6 AST 32 ALT 22 Alkaline Phosphatase 68 Total Protein 6.0 L Albumin 4.0 TSH (Reflex) 08/18/22 05:36 WBC RBC Hgb Hct MCV MCH MCHC RDW Plt Count MPV Immature Gran % (Auto) Neut % (Auto) Lymph % (Auto) Spink % (Auto) Eos % (Auto) Baso % (Auto) Lymph # (Auto) Spink # (Auto) Eos # (Auto) Baso # (Auto) Abs Immat Gran (auto) Absolute Neuts (auto) Absolute Nucleated RBC Nucleated RBC % Sodium Potassium Chloride Carbon Dioxide Anion Gap BUN Creatinine Estim Creat Clear Calc Estimated GFR Glucose Calcium Magnesium Total Bilirubin AST ALT Alkaline Phosphatase Total Protein Albumin TSH (Reflex) 0.574 Post-procedural complaints: none Patient Feedback: Patient satisfied with anesthetic care.
[2022-08-18 10:35] VITALS: BP 112/74; PULSE 100; RESP 16; TEMP 36.6; O2SAT 98
--- NOTE | 2022-08-18 10:52 | PM.PNORT ---
Progress Note: A&P Assessment and Plan (1) Hip arthritis: Code(s): M16.10 - Unilateral primary osteoarthritis, unspecified hip Status: Acute Plan Patient is doing well status post hip replacement surgery left. He can be released home. He is to be touch weight-bearing at this point he will get a bandage on so that he can take a shower he has any changes or problems he will call. Follow-up in 2 weeks with me he has got pain medicine and blood thinner the pickup. Subjective Subjective Date/Time Seen: 08/18/22 10:52 Patient is postop day 1. Status post hip replacement on the left. His incision is clean is wearing his toes pain is tolerable. Objective Data Vital Signs Vital Signs: Vital Signs - 24 hr 08/17/22 10:56 08/17/22 11:12 08/17/22 11:40 Temperature 36.1 C L 36.4 C Pulse Rate 80 68 84 Respiratory Rate 16 16 16 Blood Pressure 119/81 114/69 124/76 Pulse Oximetry 97 88 L 87 L Oxygen Delivery Room Air 08/17/22 12:10 08/17/22 12:52 08/17/22 18:28 Temperature 37.1 C 36.6 C Pulse Rate 92 108 H Respiratory Rate 16 20 Blood Pressure 125/82 134/84 Pulse Oximetry 87 L 98 Oxygen Delivery Room Air 08/17/22 19:17 08/17/22 22:00 08/17/22 23:13 Temperature 36.2 C L 37.0 C Pulse Rate 102 H 98 Respiratory Rate 18 18 Blood Pressure 124/71 115/72 Pulse Oximetry 95 96 Oxygen Delivery Room Air 08/18/22 03:36 08/17/22 22:14 08/18/22 10:35 Temperature 36.8 C 36.6 C Pulse Rate 91 100 Respiratory Rate 18 16 Blood Pressure 108/64 112/74 Pulse Oximetry 96 96 98 Oxygen Delivery Room Air Intake/Output Intake/Output: Intake & Output 08/15/22 08/16/22 08/17/22 08/18/22 23:59 23:59 23:59 23:59 Intake Total 1630 640 Output Total 900 2700 Balance 730 -2060 Meds/Results Medications: Active Medications Generic Name Dose Route Start Last Admin Trade Name Rashadq PRN Reason Stop Dose Admin Acetaminophen 650 mg 08/17/22 11:12 Acetaminophen 325 Mg Tablet PO Q6H PRN Mild Pain (1-3) or Fever Hydrocodone Bitart/Acetaminophen 1 tab 08/17/22 11:12 08/17/22 20:16 Hydrocodone/Acetaminophen (*Crx) 5-325 Mg Tablet PO 1 tab Q3H PRN Administration Pain Rated 4-6 Hydrocodone Bitart/Acetaminophen 2 tab 08/17/22 11:12 Hydrocodone/Acetaminophen (*Crx) 7.5-325 Mg Tablet PO Q6H PRN Pain Rated 7-10 Alprazolam 1 mg 08/17/22 11:12 08/18/22 08:59 Alprazolam (*Crx) 0.5 Mg Tablet PO 1 mg TID PRN Administration Anxiety Atorvastatin Calcium 40 mg 08/18/22 09:00 08/18/22 08:57 Atorvastatin 40 Mg Tablet PO 40 mg DAILY MENDY Administration Bupropion HCl 200 mg 08/17/22 21:00 08/18/22 08:57 Bupropion Hcl Sr (12hr) 100 Mg Tabcr PO 200 mg Q12HR MENDY Administration Celecoxib 200 mg 08/18/22 09:00 08/18/22 08:58 Celecoxib 200 Mg Capsule PO 200 mg DAILY MENDY Administration Fish Oil 2 gm 08/18/22 09:00 08/18/22 08:58 [place] 3 Polyunsat Fatty Acids 1 Gm Cap PO 2 gm DAILY MENDY Administration Hydroxyzine HCl 25 mg 08/17/22 11:12 Hydroxyzine Hcl 25 Mg Tablet PO TID PRN Anxiety Levothyroxine Sodium 50 mcg 08/18/22 06:30 08/18/22 05:58 Levothyroxine Sodium 50 Mcg Tablet PO 50 mcg DAILY@0630 MENDY Administration Meloxicam 15 mg 08/18/22 09:00 08/18/22 08:58 Meloxicam 7.5 Mg Tablet PO 09/17/22 08:59 15 mg QAM MENDY Administration Miscellaneous Information 0 each 08/17/22 00:01 Magnesium Please Clarify Dose 15mg??? XX 09/16/22 00:00 CLARIFY MENDY Miscellaneous Information 0 each 08/17/22 00:01 Zinc 25mg Nonform We Stock Zinc Sulfate 220mg XX 09/16/22 00:00 CLARIFY MENDY Morphine Sulfate 3 mg 08/17/22 11:12 Morphine Sulfate (*Crx) 4 Mg/Ml Inj IV PUSH Q3H PRN Pain Rated 7-10 IF NPO Morphine Sulfate 2 mg 08/17/22 11:12 Morphine Sulfate (*Crx) 2 Mg/Ml Inj IV PUSH Q3H PRN Pain Rated 4-6 IF NPO Multivitamins/Min
== END 2022-08-18 12:33 | disposition home health service (06) ==
LOC: ANHSURGERY 06:38 → ANH2MED 11:16
PROVIDERS: Physician Assistant; PCP Internal Medicine; Visit Provider Orthopaedic Surgery
PROC: (CPT 27130; principal; 2022-08-17 07:30)
DX: M16.12 Unilateral primary osteoarthritis, left hip (principal); N99.89 Other postprocedural complications and disorders of genitourinary system; R33.8 Other retention of urine; E03.9 Hypothyroidism, unspecified; F41.8 Other specified anxiety disorders; G47.33 Obstructive sleep apnea (adult) (pediatric); E78.5 Hyperlipidemia, unspecified; F10.20 Alcohol dependence, uncomplicated; E66.9 Obesity, unspecified; Z68.31 Body mass index [BMI] 31.0-31.9, adult; Z87.891 Personal history of nicotine dependence
CPT/HCPCS: 27130; 36415; 72170; 80053; 80307; 82040; 82565; 82947; 83036; 83735; 84443; 85014; 85018; 85025; 86850; 86900; 86901; 87081; 93005; 97110; 97161; 97165; 97530; 97535; 99199; A9270; C1776; C9290; J0690; J1100; J1170; J1885; J2250; J2270; J2370; J2405; J2704; J2710; J2795; J3010; J3370; J7120

== ENCOUNTER → 2022-09-21 09:53 | Outpatient (CLI) | payer OTHER, SELFPAY ==
--- NOTE | ~2022-09-21 | XR_ITS ---
EXAMINATION:XR_[id number]_CR DATE: 09/21/2022 10:03 INDICATION: Neck pain TECHNIQUE: AP, lateral, and odontoid views of the cervical spine are provided. COMPARISON: None FINDINGS: Alignment is normal. The odontoid process is intact. No fracture is identified. There is fu maude of the C3 and C4 vertebral bodies. There is severe loss of intervertebral disc space height at C 5-C6 and C6-7. Small degenerative osteophytes project from the anterior endplates of multiple vertebr al bodies. There is moderate multilevel facet and uncovertebral joint osteoarthritis. Prevertebral so ft tissues are normal. IMPRESSION: 1. Moderate to severe cervical spondylosis without acute findings. Reviewed, dictated and finalized at location B.
== END ==
PROVIDERS: PCP Nurse Practitioner; Visit Provider Nurse Practitioner
DX: M47.812 Spondylosis without myelopathy or radiculopathy, cervical region (principal)
CPT/HCPCS: 72040

== ENCOUNTER 2022-12-24 09:50 | Emergency (ER) | payer OTHER, MEDICAID, SELFPAY ==
[2022-12-24 09:56] VITALS: BP 137/83; PULSE 107; RESP 20; TEMP 36.4; O2SAT 97
[2022-12-24 10:22] LABS: Basophils Absolute Auto 0.1 K/mm3 (0.0-0.1); Basophils Percent Auto 0.8 % (0.2-1.2); Eosinophils Absolute Auto 0.1 K/mm3 (0-0.3); Hematocrit 42.3 % (42.0-52.0); Hemoglobin 13.9 g/dL (14.0-18.0); Immature Granulocyte Absolute 0.04 K/mm3 (0.00-0.031); Immature Granulocyte Percent A 0.6 % (0-0.5); Lymphocytes Absolute Auto 1.19 K/mm3 (0.9-3.2); Lymphocytes Percent Auto 18.1 % (18.3-44.2); Mean Corpuscular HGB Conc 32.9 g/dl (32-36); Mean Corpuscular Volume 88.3 fl (80-100); Mean Platelet Volume 8.7 fl (7.4-10.4); Monocytes Absolute Auto 0.4 K/mm3 (0.1-0.6); Monocytes Percent Auto 6.2 % (2.6-8.5); Neutrophils Absolute Auto 4.8 K/mm3 (1.3-6.7); Neutrophils Percent Auto 72.3 % (45.5-73.1); Platelet Count Result 195 k/mm3 (150-375); Red Blood Count 4.79 M/mm3 (4.6-6.20); Red Cell Distribution Width 14.1 % (11.5-14.5); White Blood Count 6.6 K/mm3 (4.5-10.0)
[2022-12-24 10:31] LABS: Appearance Urine Clear (Clear); Bilirubin Urine Negative (Negative); Blood Urine Negative (Negative); Color Urine Yellow (Yellow); Glucose Urine UA Negative (Negative); Ketones Urine Trace mg/dL (Negative); Leukocyte Esterase Ur Negative LEU/UL (Negative); Nitrate Urine Negative (Negative); Protein Urine Negative (Negative); Specific Grav Ur 1.021 (1.001-1.035); pH Urine 6.5 (5.0-9.0)
[2022-12-24 10:34] LABS: Add Urine Microscopic? NO
[2022-12-24 10:40] LABS: Acetaminophen < 10 ug/mL (10-30); Ethanol < 10 mg/dL (<10); Salicylate < 1.0 mg/dL (2-20)
[2022-12-24 10:55] LABS: Alanine Aminotransferase 28 U/L (6-50); Albumin Level 4.1 g/dL (3.5-5.1); Alkaline Phosphatase 86 U/L (38-126); Anion Gap 8 mmol/L (8-16); Aspartate Amino Transferase 32 U/L (17-59); Bilirubin,Total 0.6 mg/dL (0.2-1.3); Blood Urea Nitrogen 19 mg/dL (9-20); Calcium 8.8 mg/dL (8.4-10.2); Carbon Dioxide 25 mmol/L (22-30); Chloride 104 mmol/L (98-107); Estimated CRCL calculation 103 ml/min; Estimated Glomerular Filt Rate > 60; Glucose 125 mg/dL (65-110); Sodium 137 mmol/L (137-145)
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
[2022-12-24 11:13] LABS: Lithium < 0.2 mmol/L (0.6-1.2)
[2022-12-24 11:42] LABS: Barbiturate Screen Urine Negative (Negative); Benzodiazepines Screen Urine Positive (Negative)
[2022-12-24 11:46] LABS: Amphetamine Screen Urine Negative (Negative); Cannabinoid Screen Urine Positive (Negative); Cocaine Screen Urine Negative (Negative); Methadone Screen Urine Negative (Negative); Opiate Screen Urine Negative (Negative); Phencyclidine Screen Urine Negative (Negative)
== END 2022-12-24 14:32 | disposition home or self-care (01) ==
PROVIDERS: Emergency Provider Emergency Medicine; PCP Internal Medicine
DX: F41.8 Other specified anxiety disorders (principal); E78.5 Hyperlipidemia, unspecified; E03.9 Hypothyroidism, unspecified; G47.33 Obstructive sleep apnea (adult) (pediatric); E66.9 Obesity, unspecified; Z68.30 Body mass index [BMI] 30.0-30.9, adult; F17.290 Nicotine dependence, other tobacco product, uncomplicated; F10.20 Alcohol dependence, uncomplicated; Y90.0 Blood alcohol level of less than 20 mg/100 ml; Z96.642 Presence of left artificial hip joint; Z90.49 Acquired absence of other specified parts of digestive tract
CPT/HCPCS: 36415; 80053; 80178; 80307; 81003; 84443; 85025; 99284